=== PATIENT | male | born 1970 | race Caucasian/White ===

== ENCOUNTER 2017-11-05 21:56 | Inpatient (IN) | payer MEDICAID ==
[~2017-11-05] VITALS: Ht 175.3 cm; Wt 100.7 kg
[~2017-11-05 21:56] MED LIST: ANXIETY MEDS; ARIP10TA8 PO; FLUO20SO PO; HYDR25TA PO; LISI-661 PO
[2017-11-05] MEDS ORDERED: LORazepam 2 MG TABLET PO PRN (22:30)
[2017-11-05] MEDS ORDERED: HALOPERIDOL 5 MG TABLET PO PRN (22:30)
[2017-11-05] MEDS ORDERED: PNEUMOCOCCAL VACCINE POLYVALENT 0.5 ML VIAL [PPSV23] IM ONE (22:45)
[2017-11-06] MEDS: ZOLPIDEM TARTRATE 10 MG TABLET PO PRN ×2 (00:02→20:33)
[2017-11-06 01:07] VITALS: BP 130/82
[2017-11-06] MEDS ORDERED: PETROLATUM,WHITE 71 GM JELLY TP PRN (07:00)
[2017-11-06] MEDS ORDERED: ACETAMINOPHEN 325 MG TABLET PO PRN (07:00)
[2017-11-06] MEDS ORDERED: BENZOCAINE/MENTHOL LOZENGE MM PRN (07:00)
[2017-11-06] MEDS ORDERED: BACITRACIN 28.4 GM OINTMENT TP PRN (07:00)
[2017-11-06] MEDS ORDERED: CloNIDine HCL 0.1 MG TABLET PO PRN (07:00)
[2017-11-06] MEDS ORDERED: IBUPROFEN 600 MG TABLET PO PRN (07:00)
[2017-11-06] MEDS ORDERED: MAG HYDROX/AL HYDROX/SIMETH ES 30 ML SUSPENSION UDCUP PO PRN (07:00)
[2017-11-06] MEDS ORDERED: LOPERAMIDE HCL 2 MG CAPSULE PO PRN (07:00)
[2017-11-06] MEDS ORDERED: ALBUTEROL SULFATE HFA 90 MCG/PUFF 8 GM INHALER IH PRN (07:00)
[2017-11-06] MEDS ORDERED: MAGNESIUM HYDROXIDE SUSPENSION 30 ML UDCUP PO PRN (07:00)
[2017-11-06] MEDS ORDERED: ONDANSETRON HCL 4 MG TABLET PO PRN (07:00)
[2017-11-06 08:15] VITALS: BP 140/87
[2017-11-06] MEDS: OMEPRAZOLE 20 MG CAPSULE PO SCH (09:09)
[2017-11-06] MEDS: DOCUSATE SODIUM 100 MG CAPSULE PO SCH (09:09)
[2017-11-06 09:14] LABS: BASOPHILS % (AUTO) 0.4 % (0.0-2.0); EOSINOPHILS % (AUTO) 1.7 % (1.0-6.0); HEMATOCRIT 45.5 % (41-53); HEMOGLOBIN 16.5 g/dL (13.5-17.5); LYMPHOCYTES # (AUTO) 1.5 K/uL (1.0-4.8); LYMPHOCYTES % (AUTO) 16.5 % (22.0-44.0); MEAN CORPUSCULAR HEMOGLOBIN 32.1 pg (26.0-34.0); MEAN CORPUSCULAR HGB CONC 36.4 G/dL (31.0-37.0); MEAN CORPUSCULAR VOLUME 88 fL (80-100); MONOCYTES # (AUTO) 0.5 K/uL (0.1-1.0); MONOCYTES % (AUTO) 5.4 % (2.0-9.0); NEUTROPHILS # (AUTO) 6.9 K/uL (1.8-7.7); PLATELET COUNT (AUTO) 216 K/uL (150-450); RED BLOOD CELL COUNT(AUTO) 5.16 MIL/uL (4.50-5.90); RED CELL DISTRIBUTION WIDTH 13.1 % (11.5-14.5)
[2017-11-06 09:24] LABS: HEMOGLOBIN A1C 5.1 % (4.5-6.2)
[2017-11-06 09:48] LABS: ALANINE AMINOTRANSFERASE 42 U/L (12-78); ALBUMIN 3.3 g/dL (3.4-5.0); ALKALINE PHOSPHATASE 107 U/L (46-116); ANION GAP 8 mmol/L (8-16); ASPARTATE AMINOTRANSFERASE 28 U/L (15-37); BILIRUBIN,TOTAL 1.7 mg/dL (0.1-1.0); CALCIUM, TOTAL 8.7 mg/dL (8.8-10.5); CARBON DIOXIDE 28 mmol/L (22-29); CHLORIDE 100 mmol/L (98-107); CHOLESTEROL 172 mg/dL (131-200); CREATININE 1.03 mg/dL (0.60-1.30); GLOMERULAR FILTR. RATE CALC > 60 mL/min (>60); GLUCOSE,RANDOM 97 mg/dL (70-110); HDL CHOLESTEROL 43 mg/dL (40-60); LDL CHOL (CALC.) 52 mg/dL (0-130); POTASSIUM 3.1 mmol/L (3.5-5.1); SODIUM SERUM 136 mmol/L (136-145); THYROID STIMULATING HORMONE 1.21 uIU/mL (0.36-3.74); TOTAL PROTEIN, SERUM 6.5 g/dL (6.4-8.2); TRIGLYCERIDES 383 mg/dL (15-150); UREA NITROGEN, BLOOD 12 mg/dL (7-18)
[2017-11-06] MEDS ORDERED: POTASSIUM CHLORIDE 20 MEQ ER TABLET PO ONE (10:15)
[2017-11-06] MEDS: OMEGA-3/DHA/EPA/FISH OIL 1,000 MG CAPSULE PO SCH (11:10)
[2017-11-06 16:47] VITALS: BP 120/76
[2017-11-07 06:43] VITALS: BP 129/81
[2017-11-07 08:32] VITALS: BP 121/78
[2017-11-07 09:02] LABS: ANION GAP 5 mmol/L (8-16); CALCIUM, TOTAL 8.6 mg/dL (8.8-10.5); CARBON DIOXIDE 30 mmol/L (22-29); CHLORIDE 104 mmol/L (98-107); CREATININE 1.01 mg/dL (0.60-1.30); GLOMERULAR FILTR. RATE CALC > 60 mL/min (>60); GLUCOSE,RANDOM 94 mg/dL (70-110); POTASSIUM 4.5 mmol/L (3.5-5.1); SODIUM SERUM 139 mmol/L (136-145); UREA NITROGEN, BLOOD 10 mg/dL (7-18)
[2017-11-07] MEDS: DOCUSATE SODIUM 100 MG CAPSULE PO SCH (09:18)
[2017-11-07] MEDS: FLUoxetine HCL 20 MG CAPSULE PO SCH (09:19)
[2017-11-07] MEDS: LISINOPRIL 10 MG TABLET PO SCH (09:19)
[2017-11-07] MEDS: HYDROCHLOROTHIAZIDE 25 MG TABLET PO SCH (09:19)
[2017-11-07] MEDS: ARIPiprazole 10 MG TABLET PO SCH (09:19)
[2017-11-07] MEDS: OMEGA-3/DHA/EPA/FISH OIL 1,000 MG CAPSULE PO SCH (09:19)
[2017-11-07] MEDS: OMEPRAZOLE 20 MG CAPSULE PO SCH (09:19)
[2017-11-07] MEDS: NICOTINE 21 MG/24 HOUR PATCH TD SCH (12:56)
[2017-11-07 16:05] VITALS: BP 109/70
[2017-11-07] MEDS: ZOLPIDEM TARTRATE 10 MG TABLET PO PRN (20:31)
[2017-11-08 01:49] VITALS: BP 108/74
[2017-11-08] MEDS: OMEGA-3/DHA/EPA/FISH OIL 1,000 MG CAPSULE PO SCH (08:28)
[2017-11-08] MEDS: ARIPiprazole 10 MG TABLET PO SCH (08:28)
[2017-11-08] MEDS: HYDROCHLOROTHIAZIDE 25 MG TABLET PO SCH (08:28)
[2017-11-08] MEDS: OMEPRAZOLE 20 MG CAPSULE PO SCH (08:28)
[2017-11-08] MEDS: NICOTINE 21 MG/24 HOUR PATCH TD SCH (08:29)
[2017-11-08] MEDS: FLUoxetine HCL 20 MG CAPSULE PO SCH (08:29)
[2017-11-08] MEDS: LISINOPRIL 10 MG TABLET PO SCH (08:29)
[2017-11-08] MEDS: DOCUSATE SODIUM 100 MG CAPSULE PO SCH (08:29)
[2017-11-08 08:33] VITALS: BP 114/74
[2017-11-08] MEDS ORDERED: FLUO-191 PO (10:38)
[2017-11-08] MEDS ORDERED: OMEP20 PO (10:39)
[2017-11-08] MEDS ORDERED: DSS100 PO (10:39)
[2017-11-08] MEDS ORDERED: OMEG-135 PO (10:39)
== END 2017-11-08 11:20 | disposition home or self-care (01) | DRG 753 ==
LOC: B2S 22:21
PROVIDERS: ADMIT Psychiatry & Neurology Psychiatry; ATTEND Psychiatry & Neurology Psychiatry
DX: F31.9 Bipolar disorder, unspecified (principal); R45.851 Suicidal ideations; E83.51 Hypocalcemia; I10 Essential (primary) hypertension; F17.200 Nicotine dependence, unspecified, uncomplicated; E78.1 Pure hyperglyceridemia; E87.6 Hypokalemia; F22 Delusional disorders; Z79.899 Other long term (current) drug therapy; Z71.6 Tobacco abuse counseling; Z56.0 Unemployment, unspecified
CPT/HCPCS: 83036; 84439; 84443

== ENCOUNTER 2023-10-19 20:43 | Emergency (ER) | payer MEDICAID, OTHER ==
[~2023-10-19] VITALS: Ht 175.3 cm; Wt 90.9 kg
[~2023-10-19 20:43] MED LIST changes: -ANXIETY MEDS; +ARIP10TA38 PO; -ARIP10TA8 PO; +DSS100 PO; +FLUO-177 PO; -FLUO20SO PO; -HYDR25TA PO; +HYDR25TA2 PO; -LISI-661 PO; +LISI-893 PO; +OMEG-135 PO; +OMEP20 PO
[2023-10-19 20:51] VITALS: TEMP 97.6
[2023-10-19 21:23] LABS: BASOPHILS % (AUTO) 0.5 % (0.0-2.0); HEMATOCRIT 40.2 % (41-53); HEMOGLOBIN 13.9 g/dL (13.5-17.5); LYMPHOCYTES % (AUTO) 14.8 % (22.0-44.0); MEAN CORPUSCULAR HEMOGLOBIN 29.8 pg (26.0-34.0); MEAN CORPUSCULAR HGB CONC 34.5 G/dL (31.0-37.0); MEAN CORPUSCULAR VOLUME 86 fL (80-100); MONOCYTES # (AUTO) 1.1 K/uL (0.1-1.0); MONOCYTES % (AUTO) 8.2 % (2.0-9.0); NEUTROPHILS # (AUTO) 10.1 K/uL (1.8-7.7); NEUTROPHILS % (AUTO) 75.5 % (40.0-70.0); PLATELET COUNT (AUTO) 244 K/uL (150-450); RED BLOOD CELL COUNT(AUTO) 4.66 MIL/uL (4.50-5.90); RED CELL DISTRIBUTION WIDTH 13.3 % (11.5-14.5); WHITE BLOOD COUNT (AUTO) 13.4 K/uL (4.5-11.0)
[2023-10-19 21:30] LABS: ANION GAP 10 mmol/L (8-16); CALCIUM, TOTAL 8.7 mg/dL (8.8-10.5); CARBON DIOXIDE 23 mmol/L (22-29); CHLORIDE 96 mmol/L (98-107); CREATININE 0.83 mg/dL (0.60-1.30); GLOMERULAR FILTR. RATE CALC > 60 mL/min (>60); GLUCOSE,RANDOM 118 mg/dL (70-110); POTASSIUM 3.6 mmol/L (3.5-5.1); SODIUM SERUM 129 mmol/L (136-145); UREA NITROGEN, BLOOD 13 mg/dL (7-18)
[2023-10-19 21:38] LABS: TROPONIN I-HIGH SENSITIVITY 11 ng/L (<76)
[2023-10-19] MEDS ORDERED: IBUP-1492 PO (23:12)
[2023-10-19] MEDS: IBUPROFEN 600 MG TABLET PO ONE (23:20)
[2023-10-19 23:29] VITALS: BP 148/101; PULSE 92; RESP 18
== END 2023-10-19 23:39 | disposition home or self-care (01) ==
LOC: EMS 20:43
DX: S93.401A Sprain of unspecified ligament of right ankle, initial encounter (principal); S20.211A Contusion of right front wall of thorax, initial encounter; F17.210 Nicotine dependence, cigarettes, uncomplicated; Z79.899 Other long term (current) drug therapy; W18.39XA Other fall on same level, initial encounter; Y93.89 Activity, other specified; Y92.89 Other specified places as the place of occurrence of the external cause; Y99.8 Other external cause status
CPT/HCPCS: 99285; 71046; 80048; 84484; 85025; 36415; 73610; 93005; G0480